=== PATIENT | male | born 1975 | race Caucasian/White ===

== ENCOUNTER 2020-05-08 19:33 | Emergency (ER) | payer OTHER ==
[~2020-05-08] VITALS: Ht 177.8 cm; Wt 102.3 kg
--- NOTE | 2020-05-08 19:57 | NUR ---
DR. TOBAR HAS BEEN IN TO EVAL PT. AND DISCUSS POC. PT. DENIED PAIN AT TIME OF ARRIVAL TO ED. KETAMINE INFUSING BY EMS FINISHED ON ARRIVAL. PT. POSITIONED FOR COMFORT. SPO2 AND B/P MONITORS IN PLACE. CALL LIGHT AND CELL PHONE IN REACH. ALL SAFETY MEASURES OBSERVED. REPORT TO MADALYN CHÁVEZ TO ASSUME CARE OF PT.
[2020-05-08] MEDS ORDERED: METHOCARBAMOL 750 MG TABLET PO ONE (20:00)
[2020-05-08] MEDS ORDERED: HYDROmorphone 2 MG/ML, 1ML IVPush PRN (20:00)
--- NOTE | 2020-05-08 20:15 | NUR ---
AYDEE RN: MEDICAL RECORDS REQUESTED FROM [facility] AT THIS TIME
[2020-05-08] MEDS ORDERED: METHOCARBAMOL 750 MG TABLET ONE (20:24)
[2020-05-08] MEDS ORDERED: HYDROmorphone 1 MG/ML, 1ML INJ ONE (20:24)
[2020-05-08 20:34] LABS: BASOPHILS % (AUTO) 1 % (0-1); EOSINOPHILS % (AUTO) 1 % (1-7); LYMPHOCYTES % (AUTO) 14 % (22-44); MD NO; MEAN CORPUSCULAR HEMOGLOBIN 30.3 pg (27.5-34.5); MEAN CORPUSCULAR HGB CONC 33.3 g/dL (33.2-36.2); MEAN PLATELET VOLUME 6.7 fL (7.4-10.4); MONOCYTES % (AUTO) 11 % (2-9); NEUTROPHILS % (AUTO) 74 % (42-75); PLATELET COUNT 280 x10^3/uL (130-400); RED BLOOD COUNT 4.15 x10^6/uL (4.38-5.82); RED CELL DISTRIBUTION WIDTH 13.5 % (9.4-14.8)
--- NOTE | 2020-05-08 20:34 | NUR ---
RECEIVED V/O FOR 1L NS BOLUS D/T LOW BP. IVF RUNNING. MEDS ADMIN PER SEP. PT POSITIONED FOR COMFORT.
[2020-05-08 20:45] LABS: ALBUMIN 2.9 g/dL (3.4-5.0); ANION GAP 8 mmol/L (5-15); CALCIUM 8.9 mg/dL (8.5-10.1); CHLORIDE 103 mmol/L (98-107); CREATININE 0.86 mg/dL (0.7-1.3)
--- NOTE | 2020-05-08 20:47 | NUR ---
REPORT GIVEN TO JANNET BERGMAN.
--- NOTE | 2020-05-08 20:57 | NUR ---
Report rec'd. Patient just left for CT.
[2020-05-08] MEDS ORDERED: SODIUM CHLORIDE 0.9% 1,000ML IVBOLUS ONE (21:00)
[2020-05-08] MEDS ORDERED: OMNIPAQUE 350 MG/ML, 100ML BOTTLE ONE (21:29)
--- NOTE | 2020-05-08 23:26 | NUR ---
TASK RN: WALKER PROVIDED TO PT. PER DR. TOBAR VERBAL ORDER. PT. WAS ABLE TO GET OFF GURNEY USING WALKER; WALKED TO BATHROOM ACROSS WHITE TO VOID, AND WALKED BACK TO ROOM AND SAT IN CHAIR. PT. REPORTS FEELING MUCH BETTER; DR. TOBAR UPDATED. PT. TO BE D/C HOME.
[2020-05-08 23:47] VITALS: BP 110/63
== END 2020-05-08 23:50 | disposition home or self-care (01) ==
LOC: ED 23:37
DX: S39.012A Strain of muscle, fascia and tendon of lower back, initial encounter (principal); R50.9 Fever, unspecified; X58.XXXA Exposure to other specified factors, initial encounter; Y93.89 Activity, other specified; Y92.89 Other specified places as the place of occurrence of the external cause; Y99.8 Other external cause status
CPT/HCPCS: 36415; 72132; 80048; 82040; 85025; 96361; 96374; 99285; J1170; J7030; Q9967